=== PATIENT | male | born 2000 | race Hispanic/Latino ===

== ENCOUNTER 2023-01-13 17:59 | Emergency (ER) | payer OTHER ==
[~2023-01-13] VITALS: Ht 182.9 cm; Wt 104.3 kg
[2023-01-13 18:05] VITALS: BP 137/79; PULSE 77; RESP 17
[2023-01-13] MEDS ORDERED: TETANUS/DIPHTHERIA TOXOID [ADULT] 0.5 ML VIAL IM ONE (18:30)
[2023-01-13] MEDS ORDERED: LIDOCAINE HCL 1% 20 ML VIAL ONE (19:25)
== END 2023-01-13 19:55 | disposition home or self-care (01) ==
LOC: EDH 17:59
DX: S61.216A Laceration without foreign body of right little finger without damage to nail, initial encounter (principal); W26.0XXA Contact with knife, initial encounter; Y93.89 Activity, other specified; Y92.89 Other specified places as the place of occurrence of the external cause; Y99.8 Other external cause status
CPT/HCPCS: 12001; 90471; 90714

== ENCOUNTER → 2023-01-21 | Emergency (ER) | payer OTHER ==
[~2023-01-21] VITALS: Ht 182.9 cm; Wt 99.8 kg
[2023-01-21 10:22] VITALS: BP 130/84; PULSE 60; RESP 18
== END ==
LOC: EDH 10:07
DX: M79.675 Pain in left toe(s) (principal); Z48.02 Encounter for removal of sutures; Z90.89 Acquired absence of other organs
CPT/HCPCS: 99282